=== PATIENT | male | born 1990 | race Two or more races ===

== ENCOUNTER 2020-07-29 17:31 | Emergency (ER) | payer MEDICAID, OTHER ==
[~2020-07-29] VITALS: Ht 170.2 cm; Wt 79.4 kg
[2020-07-29 22:29] VITALS: BP 128/72
== END 2020-07-30 00:25 | disposition home or self-care (01) ==
LOC: ER 17:34
DX: S43.101A Unspecified dislocation of right acromioclavicular joint, initial encounter (principal); S43.401A Unspecified sprain of right shoulder joint, initial encounter; S83.91XA Sprain of unspecified site of right knee, initial encounter; S73.101A Unspecified sprain of right hip, initial encounter; S80.211A Abrasion, right knee, initial encounter; M62.838 Other muscle spasm; V86.59XA Driver of other special all-terrain or other off-road motor vehicle injured in nontraffic accident, initial encounter; Y93.89 Activity, other specified; Y92.488 Other paved roadways as the place of occurrence of the external cause; Y99.8 Other external cause status
CPT/HCPCS: 29105; 72040; 73030; 73502; 73562

== ENCOUNTER → 2022-01-16 | Emergency (ER) | payer MEDICAID ==
[~2022-01-16] VITALS: Ht 170.2 cm; Wt 73.0 kg
[~2022-01-16] MED LIST: FLUORESCEIN SOD OPTH TEST STRIP EACHEYE ONE; IBUP800T26 PO; NEOMSUS11 OP; TETRACAINE HCL 0.5% OPTH(EYE) SOLN 4ML EACHEYE ONE
[2022-01-17 00:35] VITALS: BP 108/72
== END | disposition home or self-care (01) ==
LOC: ER 23:37
DX: T15.01XA Foreign body in cornea, right eye, initial encounter (principal); X58.XXXA Exposure to other specified factors, initial encounter; Y93.89 Activity, other specified; Y92.89 Other specified places as the place of occurrence of the external cause; Y99.8 Other external cause status
CPT/HCPCS: 65222

== ENCOUNTER 2022-02-21 14:05 | Emergency (ER) | payer MEDICAID ==
[~2022-02-21] VITALS: Ht 170.2 cm; Wt 165.0 kg
[~2022-02-21 14:05] MED LIST changes: -FLUORESCEIN SOD OPTH TEST STRIP EACHEYE ONE; -TETRACAINE HCL 0.5% OPTH(EYE) SOLN 4ML EACHEYE ONE
[2022-02-21 14:28] VITALS: BP 122/88
[2022-02-21] MEDS ORDERED: FLUORESCEIN SOD OPTH TEST STRIP OP ONE (15:15)
[2022-02-21] MEDS ORDERED: TETRACAINE HCL 0.5% OPTH(EYE) SOLN 4ML EACHEYE ONE (15:15)
[2022-02-21] MEDS ORDERED: CIP03OS LEFTEYE (15:31)
== END 2022-02-21 15:40 | disposition home or self-care (01) ==
LOC: ER 14:05
DX: S05.02XA Injury of conjunctiva and corneal abrasion without foreign body, left eye, initial encounter (principal); F17.210 Nicotine dependence, cigarettes, uncomplicated; Z79.1 Long term (current) use of non-steroidal anti-inflammatories (NSAID); Z79.2 Long term (current) use of antibiotics; Z79.899 Other long term (current) drug therapy; X58.XXXA Exposure to other specified factors, initial encounter; Y93.89 Activity, other specified; Y92.89 Other specified places as the place of occurrence of the external cause; Y99.8 Other external cause status